=== PATIENT | male | born 1955 | race Caucasian/White ===

== ENCOUNTER 2017-05-18 09:36 | Emergency (ER) | payer OTHER ==
[~2017-05-18 09:36] MED LIST: AMBI10TA PO; ATEN1TAB75 PO; ECOT81TA2 PO; LEXA10TA PO; LIPI20TA PO; MORP1INJ45 PO; XANA0.5T PO
[2017-05-18 09:46] VITALS: BP 141/90; PULSE 78; RESP 20; TEMP 98.6; O2SAT 95
[2017-05-18] MEDS ORDERED: ZOLP10TA3 PO (09:50)
[2017-05-18] MEDS ORDERED: TAMS5CAP PO (09:50)
[2017-05-18] MEDS ORDERED: NICO7DIS5 T-DERMAL (09:50)
[2017-05-18] MEDS ORDERED: ATEN50TA PO (09:50)
[2017-05-18] MEDS ORDERED: SODIUM CHLOR 0.9% 1000 ML INJ 1,000 ML IV SCH (09:58)
[2017-05-18] MEDS ORDERED: SODIUM CHLORIDE 0.9% FLUSH 10 ML FLUSH IV FLUSH PRN (10:00)
[2017-05-18] MEDS ORDERED: MORPHINE SULFATE 4 MG/ML INJ IV PUSH ONE (10:00)
[2017-05-18 10:03] LABS: GLUCOSE,URINE NEG (NEG); KETONE, URINE NEG (NEG); NITRITE,URINE NEG (NEG)
[2017-05-18 10:07] LABS: BLOOD, URINE TRACE (NEG); METHOD OF COLLECTION CLEAN CATCH; URINE COLOR YELLOW (YELLW/STRAW)
[2017-05-18 10:07] LABS: AUTOMATED NEUTROPHIL # 7.5 TH/MM3 (1.8-7.7); BASOPHIL # 0.1 TH/MM3 (0-0.2); BASOPHIL % 0.8 % (0.0-2.0); EOSINOPHIL % 0.4 % (0.0-4.0); HEMATOCRIT 46.1 % (39.0-51.0); HEMO FLAGS DIFF FINAL; LYMPH % 16.2 % (9.0-44.0); LYMPHOCYTE # 1.6 TH/MM3 (1.0-4.8); MEAN CELL VOLUME 94.3 FL (80.0-100.0); MEAN CORPUSCULAR HEMOGLOBIN 31.4 PG (27.0-34.0); MEAN CORPUSCULAR HGB CONC 33.3 % (32.0-36.0); MONO % 9.1 % (0.0-8.0); NEUT % 73.5 % (16.0-70.0); PLATELET COUNT 273 TH/MM3 (150-450); RED BLOOD COUNT 4.89 MIL/MM3 (4.50-5.90); RED CELL DISTRIBUTION WIDTH 13.7 % (11.6-17.2); WHITE BLOOD COUNT 10.1 TH/MM3 (4.0-11.0)
[2017-05-18 10:08] LABS: COMMENT (UR) CULT NOT INDICATED; CULTURE IF INDICATED CULT NOT INDICATED; RBC, URINE 0-3 /hpf (0-3); WBC, URINE 0-2 /hpf (0-5)
[2017-05-18 10:11] VITALS: BP 127/89; PULSE 74; RESP 16; O2SAT 98
--- NOTE | 2017-05-18 10:17 | PD ---
HPI Chief Complaint: Complaint Time Seen by Provider: 09:48 Travel History International Travel<30 days: No Contact w/Intl Traveler<30days: No Traveled to known affect area: No History of Present Illness HPI Patient is a 62-year-old male who presents to emergency room with complaints of urinary urgency and frequency and dysuria. He has had these symptoms for the past month, reports that this is his fourth visit to a physician for evaluation of this. Reports that he was previously treated for a urinary tract infection on ciprofloxacin which seemed to symptoms, reports that once he completed his antibiotics, he had recurrence of symptoms. Reports that he is currently taking Bactrim for urinary tract infection prescribed by local emergency room. He reports that he still symptomatic, that he has subjective fevers and chills. Patient reports that he has been having intermittent lower abdominal pain, he did see his primary care doctor at the [place] today and was told to go see a urologist. Patient requests to be seen by urologist today while in the ER. Patient with subjective fevers and chills, patient with no chest pain or shortness of breath. Patient with no nausea or vomiting, denies any constipation or diarrhea. PFSH Past Medical History Cardiovascular Problems: Yes Diminished Hearing: No Genitourinary: No Hypertension: Yes Musculoskeletal: Yes (CHRONIC NECK AND BACK PAIN) Reproductive: No Respiratory: No Past Surgical History Neurologic Surgery: Yes (C3-C7 FUSION, 2002 DR HELMS) Other Surgery: Yes (c3 c7 fusion ) Social History Alcohol Use: No Tobacco Use: No (NOCCOTINE PATCH) Substance Use: No Allergies-Medications (Allergen,Severity, Reaction): Coded Allergies: No Known Allergies (Verified , 05/18/17) Reported Meds & Prescriptions Reported Meds & Active Scripts Active Reported Nicoderm CQ Patch (Nicotine) 7 Mg/24 Hr Patch 7 Mg T-DERMAL DAILY Zolpidem (Zolpidem Tartrate) 10 Mg Tab 10 Mg PO HS PRN Atenolol 50 Mg Tab 50 Mg PO DAILY Flomax (Tamsulosin HCl) 0.4 Mg Cap Unknown Dose PO HS Review of Systems General / Constitutional: Positive: Fever, Chills Eyes: No: Visual changes HENT: No: Headaches Cardiovascular: No: Chest Pain or Discomfort Respiratory: No: Shortness of Breath Gastrointestinal: Positive: Abdominal Pain, No: Nausea, Vomiting, Diarrhea, Constipation Genitourinary: Positive: Urgency, Frequency, Dysuria, No: Hematuria, Decreased Urinary Output, Hesitancy, Pelvic Pain, Flank Pain, Discharge Musculoskeletal: No: Pain Skin: No Rash Neurologic: No: Weakness, Dizziness, Headache Psychiatric: No: Depression Endocrine: No: Polydipsia Hematologic/Lymphatic: No: Easy Bruising Physical Exam Narrative GENERAL: Mild distress SKIN: Focused skin assessment warm/dry. HEAD: Atraumatic. Normocephalic. EYES: Pupils equal and round. No scleral icterus. No injection or drainage. ENT: No nasal bleeding or discharge. Mucous membranes pink and moist. NECK: Trachea midline. No JVD. CARDIOVASCULAR: Regular rate and rhythm. No murmur appreciated. RESPIRATORY: No accessory muscle use. Clear to auscultation. Breath sounds equal bilaterally. GASTROINTESTINAL: Abdomen soft, non-tender, nondistended. Hepatic and splenic margins not palpable. MUSCULOSKELETAL: No obvious deformities. No clubbing. No cyanosis. No edema. Patient with no flank pain NEUROLOGICAL: Awake and alert. No obvious cranial nerve deficits. Motor grossly within normal limits. Normal speech. PSYCHIATRIC: Patient anxious on exam; insight and judgment normal. Data Data Last Documented VS Vital Signs Date Time Temp Pulse Resp B/P (MAP) Pulse Ox O2 Delivery O2 Flow Rate FiO2 05/18/17 10:25 18 05/18/17 10:11 74 127/89 (102) 98 Room Air 05/18/17 09:46 98.6 Orders Orders Urinalysis - C+S If Indicated (05/18/17 09:45) Complete Blood Count With Diff (05/18/17 09:58) Comprehensive Metabolic Panel (05/18/17 09:58) Lipase (05/18/17 09:58) Prothrombin Time / Inr (Pt) (05/18/17 09:58) Act Partial Throm Time (Ptt) (05/18/17 09:58) Ct Abd/Pel W/O Iv Contrast (05/18/17 09:58) Iv Access Insert/Monitor (05/18/17 09:58) Ecg Monitoring (05/18/17 09:58) Oximetry (05/18/17 09:58) Morphine Inj (Morphine Inj) (05/18/17 10:00) Sodium Chlor 0.9% 1000 Ml Inj (Ns 1000 M (05/18/17 09:58) Sodium Chloride 0.9% Flush (Ns Flush) (05/18/17 10:00) Urine Culture (05/18/17 10:17) Radiology Film Requests (05/18/17 ) Labs Laboratory Tests Test 05/18/17 09:45 05/18/17 10:00 Urine Collection Type CLEAN CATCH Urine Color YELLOW Urine Turbidity CLEAR Urine pH 6.0 Urine Specific [place] 1.008 Urine Protein NEG mg/dL Urine Glucose (UA) NEG mg/dL Urine Ketones NEG mg/dL Urine Occult Blood TRACE Urine Nitrite NEG Urine Bilirubin NEG Urine Leukocyte Esterase TRACE Urine RBC 0-3 /hpf Urine WBC 0-2 /hpf Microscopic Urinalysis Comment CULT NOT INDICATED White Blood Count 10.1 TH/MM3 Red Blood Count 4.89 MIL/MM3 Hemoglobin 15.4 GM/DL Hematocrit 46.1 % Mean Corpuscular Volume 94.3 FL Mean Corpuscular Hemoglobin 31.4 PG Mean Corpuscular Hemoglobin Concent 33.3 % Red Cell Distribution Width 13.7 % Platelet Count 273 TH/MM3 Mean Platelet Volume 7.7 FL Neutrophils (%) (Auto) 73.5 % Lymphocytes (%) (Auto) 16.2 % Monocytes (%) (Auto) 9.1 % Eosinophils (%) (Auto) 0.4 % Basophils (%) (Auto) 0.8 % Neutrophils # (Auto) 7.5 TH/MM3 Lymphocytes # (Auto) 1.6 TH/MM3 Monocytes # (Auto) 0.9 TH/MM3 Eosinophils # (Auto) 0.0 TH/MM3 Basophils # (Auto) 0.1 TH/MM3 CBC Comment DIFF FINAL Differential Comment Prothrombin Time 11.0 SEC Prothromb Time International Ratio 1.0 RATIO Activated Partial Thromboplast Time 25.2 SEC Blood Urea Nitrogen 19 MG/DL Creatinine 1.10 MG/DL Random Glucose 102 MG/DL Total Protein 7.7 GM/DL Albumin 4.1 GM/DL Calcium Level 9.0 MG/DL Alkaline Phosphatase 57 U/L Aspartate Amino Transf (AST/SGOT) 11 U/L Alanine Aminotransferase (ALT/SGPT) 24 U/L Total Bilirubin 0.4 MG/DL Sodium Level 136 MEQ/L Potassium Level 4.4 MEQ/L Chloride Level 105 MEQ/L Carbon Dioxide Level 19.1 MEQ/L Anion Gap 12 MEQ/L Estimat Glomerular Filtration Rate 68 ML/MIN Lipase 305 U/L MDM Medical Decision Making Medical Screen Exam Complete: Yes Emergency Medical Condition: Yes Medical Record Reviewed: Yes Interpretation(s) Vital Signs Date Time Temp Pulse Resp B/P (MAP) Pulse Ox O2 Delivery O2 Flow Rate FiO2 05/18/17 09:46 98.6 78 20 141/90 (107) 95 Differential Diagnosis Differential includes UTI, pyelonephritis, electrolytic abnormality Narrative Course Patient is a 62-year-old male who presents to emergency room with complaints of dysuria, urinary urgency and frequency which has been an ongoing issue for the past month. Patient reports that he is on his second course of antibiotics for treatment of a urinary tract infection. he reports that he is still symptomatic , reports that he is not feeling well and request to see a urologist in the emergency room. Discussed with patient that he will need to make an appointment with urologist to be seen as an outpatient as he does not suffer any emergency at this time. In the meantime, plan to obtain blood work including BMP which will evaluate his kidney functions. UA ordered. CT the abdomen and pelvis without IV contrast ordered to evaluate for possible pyelonephritis, obstruction, kidney stone. Vital Signs Date Time Temp Pulse Resp B/P (MAP) Pulse Ox O2 Delivery O2 Flow Rate FiO2 05/18/17 10:25 18 05/18/17 10:11 74 16 127/89 (102) 98 Room Air 05/18/17 09:46 98.6 78 20 141/90 (107) 95 CBC & BMP Diagram 05/18/17 10:00 Total Protein 7.7, Albumin 4.1, Calcium Level 9.0, Alkaline Phosphatase 57, Aspartate Amino Transf (AST/SGOT) 11 L, Alanine Aminotransferase (ALT/SGPT) 24, Total Bilirubin 0.4 Laboratory Tests Test 05/18/17 09:45 05/18/17 10:00 Urine Collection Type CLEAN CATCH Urine Color YELLOW (YELLW/STRAW) Urine Turbidity CLEAR (CLEAR) Urine pH 6.0 (5.0-8.5) Urine Specific [place] 1.008 (1.002-1.035) Urine Protein NEG mg/dL (NEG-TRACE) Urine Glucose (UA) NEG mg/dL (NEG) Urine Ketones NEG mg/dL (NEG) Urine Occult Blood TRACE (NEG) Urine Nitrite NEG (NEG) Urine Bilirubin NEG (NEG) Urine Leukocyte Esterase TRACE (NEG) Urine RBC 0-3 /hpf (0-3) Urine WBC 0-2 /hpf (0-5) Microscopic Urinalysis Comment CULT NOT INDICATED White Blood Count 10.1 TH/MM3 (4.0-11.0) Red Blood Count 4.89 MIL/MM3 (4.50-5.90) Hemoglobin 15.4 GM/DL (13.0-17.0) Hematocrit 46.1 % (39.0-51.0) Mean Corpuscular Volume 94.3 FL (80.0-100.0) Mean Corpuscular Hemoglobin 31.4 PG (27.0-34.0) Mean Corpuscular Hemoglobin Concent 33.3 % (32.0-36.0) Red Cell Distribution Width 13.7 % (11.6-17.2) Platelet Count 273 TH/MM3 (150-450) Mean Platelet Volume 7.7 FL (7.0-11.0) Neutrophils (%) (Auto) 73.5 % (16.0-70.0) Lymphocytes (%) (Auto) 16.2 % (9.0-44.0) Monocytes (%) (Auto) 9.1 % (0.0-8.0) Eosinophils (%) (Auto) 0.4 % (0.0-4.0) Basophils (%) (Auto) 0.8 % (0.0-2.0) Neutrophils # (Auto) 7.5 TH/MM3 (1.8-7.7) Lymphocytes # (Auto) 1.6 TH/MM3 (1.0-4.8) Monocytes # (Auto) 0.9 TH/MM3 (0-0.9) Eosinophils # (Auto) 0.0 TH/MM3 (0-0.4) Basophils # (Auto) 0.1 TH/MM3 (0-0.2) CBC Comment DIFF FINAL Differential Comment Prothrombin Time 11.0 SEC (9.8-11.6) Prothromb Time International Ratio 1.0 RATIO Activated Partial Thromboplast Time 25.2 SEC (24.3-30.1) Blood Urea Nitrogen 19 MG/DL (7-18) Creatinine 1.10 MG/DL (0.60-1.30) Random Glucose 102 MG/DL (74-106) Total Protein 7.7 GM/DL (6.4-8.2) Albumin 4.1 GM/DL (3.4-5.0) Calcium Level 9.0 MG/DL (8.5-10.1) Alkaline Phosphatase 57 U/L (45-117) Aspartate Amino Transf (AST/SGOT) 11 U/L (15-37) Alanine Aminotransferase (ALT/SGPT) 24 U/L (12-78) Total Bilirubin 0.4 MG/DL (0.2-1.0) Sodium Level 136 MEQ/L (136-145) Potassium Level 4.4 MEQ/L (3.5-5.1) Chloride Level 105 MEQ/L (98-107) Carbon Dioxide Level 19.1 MEQ/L (21.0-32.0) Anion Gap 12 MEQ/L (5-15) Estimat Glomerular Filtration Rate 68 ML/MIN (>89) Lipase 305 U/L (73-393) CT of abdomen and pelvis: CONCLUSION: 1. No acute abnormality is identified to explain the clinical symptoms. 2. There is a sclerotic lesion in the left proximal femur measuring approximately 5.8 cm. 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 However, recommend performing dedicated x-ray imaging of the left femur for further characterization. A copy of patient's xray and studies were reviewed with patient in detail including incidental findings. I am unsure why patient has persistent dysuria, he currently is being treated with bactrim for UTI. Patient could be essentially treated for tailend of a UTI. Patient will need to follow up with UC from today and from previous cultures. Signs and symptoms of when to return to the ER was reviewed with patient in detail. He understands importance of following up with urologist and will make the earliest appointment. He will return to ER as needed. Patient safe to be discharged to home at this time as he does not suffer any emergencies. 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.30 - Lower abdominal pain, unspecified Bone fibrous dysplasia Referrals: Ahmet See MD Patient Instructions: General Instructions, Narcotic given in the ED Departure Forms: Tests/Procedures Additional Instructions: Please provide patient with a copy of his lab work and studies at discharge Please follow-up with your primary care doctor Please follow-up with a urologist as soon as possible Please bring the copy of your lab work and studies your doctor's appointment for follow-up Return to the emergency room if symptoms worsen or progress, return to the emergency room as needed Please follow up with all cultures from today Disposition: 01 DISCHARGE HOME Condition: Stable Nicolasa Pozo DO May 18, 2017 10:16
[2017-05-18 10:22] LABS: APTT (PATIENT) 25.2 SEC (24.3-30.1); CHLORIDE 105 MEQ/L (98-107); POTASSIUM 4.4 MEQ/L (3.5-5.1); SODIUM (NA) 136 MEQ/L (136-145)
[2017-05-18 10:25] VITALS: RESP 18
[2017-05-18 10:25] LABS: ANION GAP 12 MEQ/L (5-15); BICARBONATE 19.1 MEQ/L (21.0-32.0)
[2017-05-18 10:26] LABS: BLOOD UREA NITROGEN 19 MG/DL (7-18)
[2017-05-18 10:28] LABS: ALT (GPT) 24 U/L (12-78); AST (GOT) 11 U/L (15-37); GLOMERULAR FILTRATION RATE 68 ML/MIN (>89)
[2017-05-18 10:30] LABS: TOTAL BILIRUBIN ADULT 0.4 MG/DL (0.2-1.0)
[2017-05-18 10:31] LABS: ALKALINE PHOSPHATASE 57 U/L (45-117)
--- NOTE | 2017-05-18 10:51 | RADRPT ---
EXAM DATE/TIME: 05/18/2017 10:13 [facility] COMPARISON: No previous studies available for comparison. INDICATIONS : Dysuria and pelvic pain. ORAL CONTRAST: No oral contrast ingested. RADIATION DOSE: 23.60 CTDIvol (mGy) MEDICAL HISTORY : Hypertension. Left femur fracture. SURGICAL HISTORY : Fusion, cervical. ENCOUNTER: Initial ACUITY: 2 days PAIN SCALE: 5/10 LOCATION: pelvis TECHNIQUE: Volumetric scanning of the abdomen and pelvis was performed. Using automated exposure control and ad justment of the mA and/or kV according to patient size, radiation dose was kept as low as reasonably achievable to obtain optimal diagnostic quality images. DICOM format image data is available electro nically for review and comparison. FINDINGS: LOWER LUNGS: The visualized lower lungs are clear. LIVER: Homogeneous density without lesion. There is no dilation of the biliary tree. No calcified gallston es. SPLEEN: Normal size without lesion. PANCREAS: Within normal limits. KIDNEYS: Normal in size and shape. There is no mass, stone, or hydronephrosis. ADRENAL GLANDS: Within normal limits. VASCULAR: There is no aortic aneurysm. BOWEL/MESENTERY: The stomach, small bowel, and colon demonstrate no acute abnormality. There is a small hiatal hernia . There is no free intraperitoneal air or fluid. ABDOMINAL WALL: Within normal limits. RETROPERITONEUM: There is no lymphadenopathy. BLADDER: No wall thickening or mass. REPRODUCTIVE: Within normal limits. INGUINAL: There is no lymphadenopathy or hernia. MUSCULOSKELETAL: There are degenerative changes of the lumbar spine. On the flight engineer helicopter image there is a lucent lesion with sclerotic margin in the left proximal femur measuring 5.8 cm. CONCLUSION: 1. No acute abnormality is identified to explain the clinical symptoms. 2. There is a sclerotic lesion in the left proximal femur measuring approximately 5.8 cm. It is only partially visualized on this study but has features favoring a benign process such as fibrous dysplas ia. However, recommend performing dedicated x-ray imaging of the left femur for further characterizat ion. Tima Flores MD on May 18, 2017 at 10:46 Board Certified Radiologist. This report was verified electronically.
== END 2017-05-18 11:46 | disposition home or self-care (01) ==
LOC: PHED 09:36
DX: R30.0 Dysuria (principal); R10.30 Lower abdominal pain, unspecified; M85.052 Fibrous dysplasia (monostotic), left thigh; R35.0 Frequency of micturition; R39.15 Urgency of urination; I10 Essential (primary) hypertension; Z86.79 Personal history of other diseases of the circulatory system; Z87.39 Personal history of other diseases of the musculoskeletal system and connective tissue
CPT/HCPCS: 74176; 80053; 81001; 83690; 85025; 85610; 85730; 87086; 96361; 96374; 99285; J2270; J7030